=== PATIENT | male | born 2000 | race Caucasian/White ===

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

== ENCOUNTER 2018-09-16 14:42 | Emergency (ER) | payer MEDICAID | END 2018-09-16 14:48 | disposition left against medical advice (07) | LOC: ER 14:42 | DX: Z53.21 Procedure and treatment not carried out due to patient leaving prior to being seen by health care provider (principal) ==

== ENCOUNTER → 2019-02-05 | Outpatient (CLI) | payer OTHER ==
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
== END ==
LOC: OD 12:23
PROVIDERS: ATTEND Family Medicine
DX: M54.9 Dorsalgia, unspecified (principal); V89.2XXA Person injured in unspecified motor-vehicle accident, traffic, initial encounter
CPT/HCPCS: 72040; 72070; 72100

== ENCOUNTER 2019-06-18 14:28 | Emergency (ER) | payer BC, OTHER ==
[2019-06-18] MEDS ORDERED: METOCLOPRAMIDE HCL INJ/PF 10 MG/2 ML SDV IV ONE (15:24)
[2019-06-18] MEDS ORDERED: DIPHENHYDRAMINE HCL 50 MG/ML VIAL IV ONE (15:24)
--- NOTE | 2019-06-18 15:26 | ER Document Report ---
ED Medical Screen (RME) - General Chief Complaint: Headache Stated Complaint: HEADACHE Time Seen by Provider: 06/18/19 15:12 Primary Care Provider: SAMAN BATES MD [Primary Care Provider] - Follow up as needed Notes: Patient is a 19-year-old male who presents to the emergency department with a chief complaint of a migraine headache. Patient states that his pain began 2 weeks ago. He states that he feels like there is an ice pick behind his eye. He states that he feels the pain now going down to his neck. Exam: Alert and oriented. Normal strength in all extremities. I have greeted and performed a rapid initial assessment of this patient. A comprehensive ED assessment and evaluation of the patient, analysis of test results and completion of medical decision making process will be conducted by an additional ED providers. TRAVEL OUTSIDE OF THE [place] IN LAST 30 DAYS: No - Related Data Allergies/Adverse Reactions: No Known Allergies Allergy (Verified 06/18/19 15:11) Past Medical History - Social History Frequency of alcohol use: None Drug Abuse: None Renal/ Medical History: Denies: Hx Peritoneal Dialysis Psychiatric Medical History: Reports: Hx Attention Deficit Hyperactivity Dis order - Immunizations Immunizations up to date: Yes Hx Diphtheria, Pertussis, Tetanus Vaccination: Yes Physical Exam - Vital signs Vitals: Temp Pulse Resp BP Pulse Ox 97.8 F 57 L 18 135/58 H 100 06/18/19 14:36 06/18/19 14:36 06/18/19 14:36 06/18/19 14:36 06/18/19 14:36 Course - Vital Signs Vital signs: Temp Pulse Resp BP Pulse Ox 97.8 F 57 L 18 135/58 H 100 06/18/19 14:36 06/18/19 14:36 06/18/19 14:36 06/18/19 14:36 06/18/19 14:36 Doctor's Discharge - Discharge Referrals: SAMAN BATES MD [Primary Care Provider] - Follow up as needed
[2019-06-18 16:29] LABS: ABSOLUTE LYMPHOCYTES (AUTO) 1.6 10^3/uL (0.5-4.7); ABSOLUTE MONOCYTES (AUTO) 0.6 10^3/uL (0.1-1.4); ABSOLUTE NEUT (AUTO) 10.8 10^3/uL (1.7-8.2); BASOPHILS % (AUTO) 0.2 % (0-2); EOSINOPHILS % (AUTO) 0.4 % (0-6); HEMATOCRIT 48.3 % (37.9-51.0); HEMOGLOBIN 16.6 g/dL (13.5-17.0); LYMPHOCYTES % (AUTO) 12.4 % (13-45); MEAN CORPUSCULAR HEMOGLOBIN 30.6 pg (27.0-33.4); MEAN CORPUSCULAR HGB CONC 34.5 g/dL (32.0-36.0); MEAN CORPUSCULAR VOLUME 89 fl (80-97); MONOCYTES % (AUTO) 4.7 % (3-13); PLATELET COUNT 314 10^3/uL (150-450); RED BLOOD COUNT 5.44 10^6/uL (4.35-5.55); RED CELL DISTRIBUTION WIDTH 13.1 % (11.5-14.0); SEGMENTED NEUTROPHILS % (AUTO) 82.3 % (42-78); TOTAL CELLS COUNTED % (AUTO) 100 %; WHITE BLOOD COUNT 13.1 10^3/uL (4.0-10.5)
[2019-06-18 16:46] LABS: ALBUMIN 5.6 g/dL (3.5-5.0); ALKALINE PHOSPHATASE 67 U/L (38-126); ANION GAP 14 (5-19); ASPARTATE AMINO TRANSFERASE 37 U/L (17-59); BILIRUBIN,DIRECT 0.2 mg/dL (0.0-0.4); BILIRUBIN,TOTAL 0.6 mg/dL (0.2-1.3); BLOOD UREA NITROGEN 16 mg/dL (7-20); CALCIUM 10.9 mg/dL (8.4-10.2); CARBON DIOXIDE 26 mmol/L (22-30); CHLORIDE 105 mmol/L (98-107); GLUCOSE 123 mg/dL (75-110); POTASSIUM 4.9 mmol/L (3.6-5.0); TOTAL PROTEIN 9.1 g/dL (6.3-8.2)
--- NOTE | 2019-06-18 17:39 | ER Document Report ---
ED Headache - General Chief Complaint: Headache Stated Complaint: HEADACHE Time Seen by Provider: 06/18/19 15:12 Primary Care Provider: SAMAN BATES MD [COMMUNITY BASED STAFF] - Follow up as needed Notes: 19-year-old male presents with intermittent migraine headache for the past 2 weeks. Patient states this time it is right behind his right eye. Patient states they occur upon awakening. Patient states not worst headache of life. Patient states gradual in onset. Associated nausea and photophobia. Patient states he has been under more stress the last 2 weeks. Patient denies fever, vomiting, neck pain. Patient was given migraine cocktail out in triage with complete relief of headache. TRAVEL OUTSIDE OF THE [place] IN LAST 30 DAYS: No - Related Data Allergies/Adverse Reactions: No Known Allergies Allergy (Verified 06/18/19 15:11) Past Medical History - Social History Smoking Status: Never Smoker Frequency of alcohol use: None Drug Abuse: None Family History: Reviewed & Not Pertinent Patient has suicidal ideation: No Patient has homicidal ideation: No Neurological Medical History: Reports: Hx Migraine Renal/ Medical History: Denies: Hx Peritoneal Dialysis Psychiatric Medical History: Reports: Hx Attention Deficit Hyperactivity Disorder - Immunizations Immunizations up to date: Yes Hx Diphtheria, Pertussis, Tetanus Vaccination: Yes Review of Systems - Review of Systems Notes: Constitutional: Negative for fever. HENT: Negative for sore throat. Eyes: Negative for visual changes. Cardiovascular: Negative for chest pain. Respiratory: Negative for shortness of breath. Gastrointestinal: Negative for abdominal pain, vomiting or diarrhea. Genitourinary: Negative for dysuria. Musculoskeletal: Negative for back pain. Skin: Negative for rash. Neurological: Positive for headaches. Negative for weakness or numbness. 10 point ROS negative except as marked above and in HPI. Physical Exam - Vital signs Vitals: Temp Pulse Resp BP Pulse Ox 97.8 F 57 L 18 135/58 H 100 06/18/19 14:36 06/18/19 14:36 06/18/19 14:36 06/18/19 14:36 06/18/19 14:36 - Notes Notes: GENERAL: Well-appearing, well-nourished and in no acute distress. HEAD: Atraumatic, normocephalic. EYES: Pupils equal round and reactive to light, extraocular movements intact, sclera anicteric, conjunctiva are normal. ENT: TMs normal, nares patent, oropharynx clear without exudates. Moist mucous membranes. NECK: Normal range of motion, supple without lymphadenopathy or JVD. Negative Brudzinski's LUNGS: Breath sounds clear to auscultation bilaterally and equal. No wheezes rales or rhonchi. HEART: Regular rate and rhythm without murmurs, rubs or gallops. EXTREMITIES: Normal range of motion, no pitting or edema. No clubbing or cyanosis. NEUROLOGICAL: Cranial nerves II through XII grossly intact. Normal speech, normal gait. No facial droop. No tongue deviation. 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 Sensory intact bilaterally. Upper/lower extremity strength equal bilaterally. PSYCH: Normal mood, normal affect. SKIN: Warm, Dry, normal turgor, no rashes or lesions noted. Course - Re-evaluation Re-evalutation: 06/18/19 Presentation of a headache that appears to be most consistent with tension versus migrainous type headache. Headache was not maximal in onset, patient has no focal neurologic deficits, no nuchal rigidity, vital signs within normal limits, no papilledema, and patient is overall well in appearance. Based on clinical history and examination I do not suspect an acute subarachnoid hemorrhage, dural venous sinus thrombosis, acute meningitis, or intercranial mass. Given my low clinical suspicion for any acute life-threatening etiology, I do not feel advanced neuro imaging or laboratory testing is indicated at this time. Pt was given headache cocktail and has complete relief of headache. Pt given prescription for fioricet and referral to PCP. Pt also given neurology referral. Return precautions discussed/given. All questions/concerns addressed prior to discharge. - Vital Signs Vital signs: Temp Pulse Resp BP Pulse Ox 97.8 F 57 L 18 135/58 H 100 06/18/19 14:36 06/18/19 14:36 06/18/19 14:36 06/18/19 14:36 06/18/19 14:36 - Laboratory Result Diagrams: 06/18/19 16:16 06/18/19 16:16 Laboratory results interpreted by me: 06/18/19 06/18/19 16:16 16:16 WBC 13.1 H Lymph % (Auto) 12.4 L Absolute Neuts (auto) 10.8 H Seg Neutrophils % 82.3 H Glucose 123 H Calcium 10.9 H Total Protein 9.1 H Albumin 5.6 H Discharge - Discharge Clinical Impression: Migraine headache Qualifiers: Migraine type: unspecified Status migrainosus presence: without status migrainosus Intractability: not intractable Qualified Code(s): G43.909 - Migraine, unspecified, not intractable, without status migrainosus Condition: Stable Disposition: HOME, SELF-CARE Instructions: Reglan ([facility]), Headache ([facility]) Additional Instructions: You have been seen in the Emergency Department (ED) for a headache. Please use fioricet as prescribed. Please use Tylenol (acetaminophen) or Motrin (ibuprofen) as needed for symptoms, but only as written on the box. As we have discussed, please follow up with your primary care doctor as soon as possible regarding today's ED visit and your headache symptoms. Call your doctor or return to the ED if you have a worsening headache, sudden and severe headache, confusion, slurred speech, facial droop, weakness or numbness in any arm or leg, extreme fatigue, or other symptoms that concern you. Prescriptions: Butalb/Acetaminophen/Caffeine [Fioricet (50-325-40 mg) Tablet] 1 - 2 tab PO Q4H #20 tab Forms: Return to Work Referrals: SAMAN BATES MD [COMMUNITY BASED STAFF] - Follow up as needed LIUDMILA RIZO MD [ACTIVE STAFF] - Follow up as needed (for PCP) STEFFANIE LEAL MD [EMERITUS] - Follow up as needed
[2019-06-18 18:23] VITALS: BP 128/70
== END 2019-06-18 18:02 | disposition home or self-care (01) ==
LOC: ER 14:28
DX: G43.909 Migraine, unspecified, not intractable, without status migrainosus (principal); R11.0 Nausea; H53.149 Visual discomfort, unspecified
CPT/HCPCS: 36415; 85025; 80053; J1200; J2765; 96374; 96375; 99284